=== PATIENT | male | born 1965 | race Two or more races ===

== ENCOUNTER 2025-08-05 19:43 | Emergency (ER) | payer MEDICAID ==
[~2025-08-05] VITALS: Ht 165.1 cm; Wt 75.0 kg
[2025-08-05 19:46] VITALS: BP 155/110
[2025-08-05 21:00] VITALS: PULSE 90; RESP 16; TEMP 97.7; O2SAT 99
[2025-08-05] MEDS ORDERED: IBUP-1456 PO (21:04)
[2025-08-05] MEDS ORDERED: PRED20TA2 PO (21:04)
--- NOTE | 2025-08-05 21:04 | ED.PDOC ---
Musculoskeletal HPI Comments 60 year old male presents to ER with complaints of bilateral foot pain x 2 months. Patient with PMH significant for neuropathy of bilateral lower extremities reports he's been experiencing burning pain to bilateral feet x 2 months. Denies any injury/skin changes and rates his current pain an eight 7/10. Notes he was prescribed gabapentin in the past for neuropathy but has been noncompliant with this medication. Patient presents to ER ambulatory on arrival, with steady gait, in no distress and does report chronic numbness/tingling to bilateral feet. Denies fever, body aches, chills or any further symptoms/complaints Chief Complaint: Lower Extremity Time Seen by MD: 20:03 Primary Care Provider: UNKNOWN Reviewed Notes: Nurses Notes, Medications, Allergies Allergies: Coded Allergies: Sulfamethoxazole w/Trimethoprim (Verified Allergy, Unknown, 08/05/25) Home Meds Active Scripts Prednisone (Prednisone) 20 Mg Tab, 20 MG PO BID for 5 Days, #10 TAB 0 Refills Prov:DARLINE LYNCH 08/05/25 Ibuprofen (Ibuprofen) 800 Mg Tab, 1 TAB PO TID PRN, #30 TAB 0 Refills Prov:DARLINE LYNCH 08/05/25 Information Source: Patient Mode of Arrival: Ambulatory Past Medical History PAST MEDICAL HISTORY: Anxiety, Depression, High Lipids, HTN Past Medical History (Other): Neuropathy Surgical History: Denies all surgeries Family History Family History: Unknown Social History Smoker: Non-Smoker Alcohol: Denies ETOH Use Drugs: Methamphetamine Lives In: Home Constitutional: denies: chills, diaphoresis, fatigue, fever, malaise, sweats, weakness, others EENTM: denies: blurred vision, double vision, ear bleeding, ear discharge, ear drainage, ear pain, ear ringing, eye pain, eye redness, hearing loss, mouth pain, mouth swelling, nasal discharge, nose bleeding, nose congestion, nose pain, photophobia, tearing, throat pain, throat swelling, voice changes, others Respiratory: denies: cough, hemoptysis, orthopnea, SOB at rest, shortness of breath, SOB with excertion, stridor, wheezing, others Cardiovascular: denies: chest pain, dizzy spells, diaphoresis, Dyspnea on exertion, edema, irregular heart beat, left arm pain, lightheadedness, palpitations, PND, syncope, others Gastrointestinal: denies: abdomen distended, abdominal pain, blood streaked bowels, constipated, diarrhea, dysphagia, difficulty swallowing, hematemesis, melena, nausea, poor appetite, poor fluid intake, rectal bleeding, rectal pain, vomiting, others Genitourinary: denies: burning, dysuria, flank pain, frequency, hematuria, incontinence, penile discharge, penile sore, pain, testicle pain, testicle swelling, urgency, others Neurological: reports: others (As stated in HPI) Musculoskeletal: reports: others (As stated in HPI) Integumetry: denies: bruises, change in color, change in hair/nails, dryness, laceration, lesions, lumps, rash, wounds, others Allergic/Immunocompromised: denies: Difficulty Healing, Frequent Infections, Hives, Itching, others Hematologic/Lymphatic: denies: anemia, blood clots, easy bleeding, easy bruising, swollen glands, others Endocrine: denies: excessive hunger, excessive sweating, excessive thirst, excessive urination, flushing, intolerance to cold, intolerance to heat, u nexplained weight gain, unexplained weight loss, others Psychiatric: denies: anxiety, bipolar disorder, depression, hopeless, panic disorder, schizophrenia, sleepless, suicidal, others Physical Exam General Appearance: No Apparent Distress HEENT: PERRL/EOMI Neck: Full Range of Motion, Non-Tender, Normal Respiratory: Chest Non-Tender, Lungs Clear, No Accessory Muscle Use, No Respiratory Distress, Normal Breath Sounds Cardiovascular: No Murmur, No Gallop, Regular Rate/Rhythm Breast Exam: Deferred Gastrointestinal: NOT DONE Genitalia: Deferred Pelvic: Deferred Rectal: Deferred Extremities: No calf tenderness, Normal capillary refill, Normal range of motion Musculoskeletal : Extremity Location: Foot (Slight TTP diffuse to all joints of bilateral feet without any erythema/swelling/skin changes noted. Gait intact without abnormality) Neurologic: Alert, No Motor Deficits, Normal Affect, Normal Mood, No Sensory Deficits Cerebellar Function: Normal Reflexes: Normal Skin: Dry, Warm Peripheral Pulses: 2+ dorsalis pedis (R), 2+ dorsalis pedis (L), 2+ Radial (R), 2+ Radial (L), 2+ Brachial (R), 2+ Brachial (L) Lymphatic: No Adenopathy Was a procedure done? Was a procedure done?: No Sedation Sedation?: No Differential Diagnosis EXT Differential Diagnosis: Cellulitis, Deep Vein Thrombosis, Sprain, Neurovascular injury X-Ray, Labs, Meds, VS Vital Signs Date Time Temp Pulse Resp B/P (MAP) Pulse Ox O2 Delivery O2 Flow Rate FiO2 08/05/25 21:00 Room Air* 0 21 08/05/25 21:00 97.7 90 16 99 97.7 08/05/25 19:46 97.7 90 16 155/110 99 97.7 Ibuprofen 800 mg p.o. ordered Prednisone 40 mg p.o. ordered Methamphetamine cessation discussed and advised Importance of medication compliance discussed and advised Advised to follow up with PCP and manuscript editor in 1-2 days Patient verbalized understanding and agreeable with current plan of care Advised to return to ER immediately if symptoms worsen Time of 1ST Reevaluation: 20:44 Reevaluation 1ST: N/A Patient Education/Counseling: Diagnosis, Treatment, Prognosis, Need For Follow Up Family Education/Counseling: No Family Present Departure 1 Departure Time of Disposition: 21:02 Impression: Primary Impression: Neuropathy of both feet Additional Impression: Arthralgia of both feet Disposition: 01 HOME / SELF CARE / HOMELESS Condition: Stable e-Prescriptions Prednisone (Prednisone) 20 Mg Tab 20 MG PO BID for 5 Days, #10 TAB 0 Refills Prov: DARLINE LYNCH 08/05/25 Ibuprofen (Ibuprofen) 800 Mg Tab 1 TAB PO TID PRN, #30 TAB 0 Refills Prov: DARLINE LYNCH 08/05/25 Discharged With: Self Critical Care Note Critical Care Time?: No Stability Stability form required: No Heart Score Heart Score: Heart Score Response (Comments) Value History N/A 0 EKG N/A 0 Age N/A 0 Risk Factors N/A 0 Troponin N/A 0 Total 0 DARLINE LYNCH Aug 05, 2025 21:04
[2025-08-05] MEDS: predniSONE 20 MG TAB PO ONE (21:16)
[2025-08-05] MEDS: IBUPROFEN 800 MG TAB PO ONE (21:16)
== END 2025-08-05 21:17 | disposition home or self-care (01) ==
LOC: ER 19:43
DX: G62.9 Polyneuropathy, unspecified (principal); M79.672 Pain in left foot; M79.671 Pain in right foot; Z79.899 Other long term (current) drug therapy
CPT/HCPCS: 99283; J7512